=== PATIENT | male | born 1995 | race Hispanic/Latino ===

== ENCOUNTER 2017-02-15 03:51 | Observation (INO) | payer OTHER ==
[2017-02-15 04:02] VITALS: TEMP 97.5
--- NOTE | 2017-02-15 04:54 | ED PDOC ---
HPI: Psych/Substance Abuse Time Seen by Provider: 02/15/17 04:16 Chief Complaint (Nursing): Alcohol Ingestion Chief Complaint (Provider): intoxication Additional Complaint(s): 21yo M in ED for eval of intoxication-found sleeping ontop of an SUV. pt is somnolent. Past Medical History Reviewed: Unable To Obtain Vital Signs: Last Vital Signs Temp 97.5 F L 02/15/17 03:58 Pulse 79 02/15/17 03:58 Resp 18 02/15/17 03:58 BP 111/65 02/15/17 03:58 Pulse Ox 95 02/15/17 03:58 - Family History Family History: States: Unknown Family Hx - Allergies Allergies/Adverse Reactions: Allergies Allergy/AdvReac Type Severity Reaction Status Date / Time No Known Allergies Allergy Verified 02/15/17 03:57 Review of Systems ROS Statement: Except As Marked, All Systems Reviewed And Found Negative Physical Exam - Reviewed Nursing Documentation Reviewed: Yes Vital Signs Reviewed: Yes - Physical Exam Appears: Positive for: No Acute Distress. Negative for: Well (intoxciated), Non -toxic Head Exam: Positive for: ATRAUMATIC, NORMAL INSPECTION, NORMOCEPHALIC Skin: Positive for: Normal Color, Warm, DRY Cardiovascular/Chest: Positive for: Regular Rate, Rhythm Respiratory: Positive for: CNT, Normal Breath Sounds Neurologic/Psych: Positive for: Alert, Gait (unstable giat, slurred speech. ) - ECG O2 Sat by Pulse Oximetry: 95 - Progress ED Course And Treament: intoxicated, BAL levesl and finger stick., obs ED ED OBSERVATION Date of observation admission: 02/15/17 Time of observation admission: 04:55 - Observation admission statement Patient is being placed in observation because:: intoxication - Goals of Observation Goals of observation are:: clinical sobriety - Progress Note Progress Note: 02/15/17 06:03 case signed out to MD Bekah pending sobriety. Disposition - Clinical Impression Clinical Impression: Alcohol abuse with intoxication - Patient ED Disposition Is Patient to be Admitted: Transfer of Care - Disposition Disposition Time: 06:04 Condition: STABLE Patient Signed Over To: Emmanuelle Martel (sobirety)
--- NOTE | 2017-02-15 06:10 | ED PDOC ---
- ECG O2 Sat by Pulse Oximetry: 95 (RA) Pulse Ox Interpretation: Normal Medical Decision Making Medical Decision Making: Time:06:00 Patient was transferred to ma from Ursula Guevara PA-C. Pending sobriety. signout to Dr Harris at 7 am pending sobrity Scribe Attestation: Documented by Akua Ford, acting as a scribe for Emmanuelle Martel MD. Provider Scribe Attestation: All medical record entries made by the Scribe were at my direction and personally dictated by me. I have reviewed the chart and agree that the record accurately reflects my personal performance of the history, physical exam, medical decision making, and the department course for this patient. I have also personally directed, reviewed, and agree with the discharge instructions and disposition. Disposition - Clinical Impression Clinical Impression: Alcohol abuse with intoxication - POA Present On Arrival: None - Disposition Disposition: Transfer of Care Disposition Time: 07:00 Condition: STABLE
--- NOTE | 2017-02-15 07:19 | ED PDOC ---
- ECG O2 Sat by Pulse Oximetry: 95 (RA) - Progress Re-evaluation Time: 09:25 Condition: Improved (awake alert no focal neuro deficits) Medical Decision Making Medical Decision Makin:00 Patient signed out to me by Dr. Martel. Pending sobriety Disposition - Clinical Impression Clinical Impression: Alcohol abuse with intoxication - POA Present On Arrival: None - Disposition Disposition: Routine/Home Disposition Time: 09:26 Condition: STABLE
[2017-02-15 09:52] VITALS: BP 115/71; PULSE 72; RESP 16
[2017-02-15 19:53] VITALS: O2SAT 95
== END 2017-02-15 09:50 | disposition home or self-care (01) ==
LOC: H.ER 03:51 → H.EROBSV 04:55
PROVIDERS: ADMIT Emergency Medicine; ATTEND Emergency Medicine
DX: F10.129 Alcohol abuse with intoxication, unspecified (principal); Y90.8 Blood alcohol level of 240 mg/100 ml or more

== ENCOUNTER 2017-10-05 02:41 | Emergency (ER) | payer BC, OTHER ==
[2017-10-05 02:54] VITALS: RESP 16; TEMP 97.8
--- NOTE | 2017-10-05 04:15 | ED PDOC ---
HPI: Psych/Substance Abuse Time Seen by Provider: 10/05/17 02:57 Chief Complaint (Nursing): Alcohol Ingestion Chief Complaint (Provider): Alcohol Ingestion ED Caveat: Intoxicated History Per: Patient History/Exam Limitations: intoxication Current Symptoms Are (Timing): Still Present Suicide/Self Injury Attempted (Context): None Modifying Factor(s): Alcohol Additional Complaint(s): 22 year old male brought in by EMS presents to ED for public intoxication and has an unknown past medical history. Patient is unable to provide any H&P. PCP: [facility] Past Medical History Reviewed: Nursing Documentation, Vital Signs Vital Signs: Last Vital Signs Temp 97.8 F 10/05/17 02:52 Pulse 97 H 10/05/17 02:52 Resp 16 10/05/17 02:52 BP 140/83 10/05/17 02:52 Pulse Ox 96 10/05/17 02:52 - Family History Family History: States: Unknown Family Hx - Allergies Allergies/Adverse Reactions: Allergies Allergy/AdvReac Type Severity Reaction Status Date / Time No Known Allergies Allergy Verified 10/05/17 02:51 Review of Systems Review Of Systems: ROS cannot be obtained secondary to pt's inabilty to answer questions. (due to patient's intoxicated state) Physical Exam - Reviewed Nursing Documentation Reviewed: Yes Vital Signs Reviewed: Yes - Physical Exam Appears: Positive for: Non-toxic, No Acute Distress (alcohol on breath) Skin: Positive for: Normal Color, Warm, Dry Cardiovascular/Chest: Positive for: Regular Rate, Rhythm. Negative for: Murmur Respiratory: Positive for: Normal Breath Sounds. Negative for: Respiratory Distress Gastrointestinal/Abdominal: Positive for: Soft. Negative for: Tenderness Extremity: Positive for: Normal ROM. Negative for: Deformity Neurologic/Psych: Positive for: Gait (unsteady). Negative for: Alert, Oriented , Motor/Sensory Deficits - ECG O2 Sat by Pulse Oximetry: 96 (RA) Pulse Ox Interpretation: Normal Medical Decision Making Medical Decision Makin Initial impression: EtOH intoxication Initial plan: * EtOH serum * UDrug screen * Accucheck 0700 Patient is awake, alert, and oriented x3. Patient walks with a steady gait and is stable for discharge home. Dx: alcohol abuse with intoxication Scribe Attestation: Documented by Amara Flowers acting as a scribe for Fab Hernández MD. DO Scribe Attestation: All medical record entries made by the Scribe were at my direction and personally dictated by me. I have reviewed the chart and agree that the record accurately reflects my personal performance of the history, physical exam, medical decision making, and the department course for this patient. I have also personally directed, reviewed, and agree with the discharge instructions and disposition. Disposition - Clinical Impression Clinical Impression: Alcohol abuse with intoxication - Disposition Disposition: Routine/Home Disposition Time: 07:00 Condition: STABLE Instructions: Alcohol Abuse and Alcoholism (DC) Forms: [facility] (Vietnamese)
[2017-10-05 06:57] VITALS: BP 98/48; PULSE 82
[2017-10-05 07:10] VITALS: O2SAT 96
== END 2017-10-05 07:40 | disposition home or self-care (01) ==
LOC: H.ER 02:41
DX: F10.129 Alcohol abuse with intoxication, unspecified (principal)

== ENCOUNTER 2018-06-19 04:47 | Emergency (ER) | payer BC ==
[2018-06-19 05:12] VITALS: O2SAT 100
--- NOTE | 2018-06-19 06:37 | ED PDOC ---
HPI: Psych/Substance Abuse Time Seen by Provider: 06/19/18 05:00 Chief Complaint (Nursing): Alcohol Ingestion Chief Complaint (Provider): Alcohol Ingestion History Per: Patient History/Exam Limitations: no limitations Current Symptoms Are (Timing): Better Modifying Factor(s): Alcohol Additional Complaint(s): 22 year male arrives to ED with HPD for an evaluation of alcohol intoxication prior to arrival. Patient was recently seen in ED for similar complaint and admits to drinking earlier tonight. No further medical complaints offered. PCP: none provided Past Medical History Reviewed: Historical Data, Nursing Documentation, Vital Signs Vital Signs: Last Vital Signs Temp 98.7 F 06/19/18 05:10 Pulse 100 H 06/19/18 05:10 Resp 16 06/19/18 05:10 BP 139/90 06/19/18 05:10 Pulse Ox 100 06/19/18 05:10 - Medical History PMH: No Chronic Diseases - Surgical History Surgical History: No Surg Hx - Family History Family History: States: Unknown Family Hx - Allergies Allergies/Adverse Reactions: Allergies Allergy/AdvReac Type Severity Reaction Status Date / Time No Known Allergies Allergy Verified 10/05/17 02:51 Review of Systems ROS Statement: Except As Marked, All Systems Reviewed And Found Negative Gastrointestinal: Negative for: Nausea, Vomiting, Abdominal Pain Physical Exam - Reviewed Nursing Documentation Reviewed: Yes Vital Signs Reviewed: Yes - Physical Exam Appears: Positive for: Well, Non-toxic, No Acute Distress Head Exam: Positive for: ATRAUMATIC, NORMAL INSPECTION, NORMOCEPHALIC Skin: Positive for: Normal Color Eye Exam: Positive for: Normal appearance, EOMI, PERRL ENT: Positive for: Normal ENT Inspection Neck: Positive for: Normal Cardiovascular/Chest: Positive for: Regular Rate, Rhythm Respiratory: Positive for: Normal Breath Sounds. Negative for: Respiratory Distress Gastrointestinal/Abdominal: Positive for: Normal Exam, Soft. Negative for: Tenderness Extremity: Positive for: Normal ROM (upper/lower) Neurologic/Psych: Positive for: Alert, Oriented, Gait (steady), Other (speaking full sentences). Negative for: Motor/Sensory Deficits, Aphasia - ECG O2 Sat by Pulse Oximetry: 100 (RA) Pulse Ox Interpretation: Normal Medical Decision Making Medical Decision Making: Initial Impression: 22 year old male with alcohol use Time: 519 --Upon provider evaluation, patient medically stable, clinically sober with steady gait and clear speech. Patient will be discharged home. Counseling was provided and all questions were answered regarding diagnosis. There is agreement to discharge plan. Return if symptoms persist or worsen. Clinical Impression: Alcohol use Scribe Attestation: Documented by Akua Ford, acting as a scribe for Fab Hernández MD. Provider Scribe Attestation: All medical record entries made by the Scribe were at my direction and personally dictated by me. I have reviewed the chart and agree that the record accurately reflects my personal performance of the history, physical exam, medical decision making, and the department course for this patient. I have also personally directed, reviewed, and agree with the discharge instructions and disposition. Disposition - Clinical Impression Clinical Impression: Alcohol use - Patient ED Disposition Is Patient to be Admitted: No Counseled Patient/Family Regarding: Diagnosis - Disposition Disposition: Routine/Home Disposition Time: 05:20 Condition: STABLE Instructions: Alcohol Use - When Is Drinking a Problem? Forms: [email or web address] (Pashto)
[2018-06-19 06:58] VITALS: BP 129/84; PULSE 88; RESP 18; TEMP 98.6
== END 2018-06-19 05:25 | disposition home or self-care (01) ==
LOC: H.ER 04:47
DX: F10.10 Alcohol abuse, uncomplicated (principal)